=== PATIENT | female | born 1965 | race American Indian/Alaskan Native ===

== ENCOUNTER 2017-04-11 09:27 | Outpatient (CLI) | payer BC ==
--- NOTE | 2017-04-11 10:56 | Magnetic Resonance Report ---
MRI BRAIN WITHOUT CONTRAST: 04/11/17 09:27:00 CLINICAL: Chiari I malformation TECHNIQUE: Axial diffusion, T1, T2, FLAIR, gradient echo T2*, and sagittal T1 sequences on a 1.5 Sara magnet. FINDINGS: Normal ventricles and sulci. The cerebellar tonsils extend inferior to the foramen magnum by approximately 5 mm. The brainstem and spinal cord are normal in size with normal signal. The bony structures including C1 and C2 are normal. No restricted diffusion. A single tiny right parietal white matter focal hyperintensity on FLAIR. No mass or mass effect. No hemorrhage, edema or extra-axial collection. Normal pituitary and optic chiasm. The brainstem and cerebellum are normal. Intact vascular flow voids. Normal sinuses. The orbits, and soft tissues are normal. IMPRESSION: 1. Mild Chiari I malformation. 2. A single tiny right parietal white matter focal hyperintensity on FLAIR. 3. No acute change.
== END 2017-04-11 09:28 | disposition home or self-care (01) ==
LOC: MRI 09:27
PROVIDERS: ATTEND Internal Medicine
DX: G93.5 Compression of brain (principal)
CPT/HCPCS: 70551

== ENCOUNTER 2018-01-23 10:42 | Emergency (ER) | payer BC, OTHER ==
[2018-01-23 11:16] LABS: Basophils # (Auto) 0.1 K/mm3 (0.0-0.1); Basophils % (Auto) 0.8 % (0.0-1.8); Eosinophils # (Auto) 0.1 K/mm3 (0.0-0.4); Eosinophils % (Auto) 0.9 % (0.0-4.3); Hematocrit 38.4 % (30.3-42.9); Hemoglobin 12.6 gm/dl (10.1-14.3); Lymphocytes # (Auto) 1.7 K/mm3 (1.2-5.4); Lymphocytes % (Auto) 24.6 % (13.4-35.0); Mean Corpuscular HGB Conc 33 % (30-34); Mean Corpuscular Hemoglobin 29 pg (28-32); Mean Corpuscular Volume 88 fl (79-97); Monocytes # (Auto) 0.5 K/mm3 (0.0-0.8); Monocytes % (Auto) 6.6 % (0.0-7.3); Platelet Count 322 K/mm3 (140-440); Red Blood Count 4.35 M/mm3 (3.65-5.03); Red Cell Distribution Width 13.8 % (13.2-15.2)
[2018-01-23 11:30] LABS: BUN/Creatinine Ratio 13; Blood Urea Nitrogen 8 mg/dL (7-17); Calcium 8.9 mg/dL (8.4-10.2); Hemolysis Index 3
--- NOTE | 2018-01-23 11:40 | XRay Report ---
ROUTINE CHEST, TWO VIEWS: HISTORY: Shortness of breath. The trachea, heart, mediastinal contour, lung feliz and bony thorax are unremarkable. IMPRESSION: Unremarkable chest x-ray.
--- NOTE | 2018-01-23 12:01 | Emergency Department Report ---
ED Shortness of Breath HPI - General Chief Complaint: Dyspnea/Respdistress Stated Complaint: SOB/HEAD PAIN Time Seen by Provider: 01/23/18 11:50 Source: patient Mode of arrival: Ambulatory Limitations: No Limitations - History of Present Illness Initial Comments: This is a 52-year-old patient here complaining of chronic headaches but today her headache is worse. She is also states that she has swelling to both her legs extremity for a couple days. She states shortness of breath or cough. Denies any history of any heart disease or high blood pressure. She has a history of Chiari malformation and said that is her only medical problem. Denies any chest pain or tightness. Denies any wheezing. Denies any sore throats. She reports the cough is worse at night when she lays down and reports some nasal congestion or runny nose. Patient reports this started about a week ago. She says she has taken [id number] medication but it is not helping. Denies any blurred vision, sensitivity to light, nausea or vomiting or dizziness. Pain is 7-8 out of 10. She denies any pain to her legs to support that they are swollen and she has had this in the past and she says she did not see the doctor she just elevate her legs and they went down. Denies any history of blood clots or clotting disorder. Denies any family history of blood clots. Denies long distance travel or any hormone therapy. MD Complaint: shortness of breath, cough Onset/Timin -: week(s) Radiation: other (nonenone) Severity: severe Pain Scale: 8 Quality: aching Consistency: intermittent Improves With: nothing Worsens With: nothing Known History Of: other (history of swelling to leg and headache) Context: recent URI (current upper respiratory symptoms) Associated Symptoms: cough Treatments Prior to Arrival: none - Related Data Home Oxygen Therapy: No Previous Rx's Medication Instructions Recorded Last Taken Type Amoxicillin/K Clav Tab [Augmentin 1 tab PO Q12HR #20 tab 01/23/18 Unknown Rx 875MG TAB] Cetirizine HCl [ZyrTEC] 10 mg PO QAM 14 Days #14 capsule 01/23/18 Unknown Rx Fluticasone [Flonase] 1 spray NS QDAY 14 Days #1 bottle 01/23/18 Unknown Rx Furosemide [Lasix TAB] 40 mg PO QAM 3 Days #3 tablet 01/23/18 Unknown Rx Ibuprofen [Motrin] 600 mg PO Q8H PRN #12 tablet 01/23/18 Unknown Rx Potassium Chloride [K-Dur] 20 meq PO QDAY 3 Days #3 tab 01/23/18 Unknown Rx Allergies Allergy/AdvReac Type Severity Reaction Status Date / Time IVP DYE Allergy Hives Uncoded 01/23/18 10:47 ED Review of Systems ROS: Stated complaint: SOB/HEAD PAIN Other details as noted in HPI Constitutional: denies: chills, fever Eyes: denies: eye pain, eye discharge, vision change ENT: congestion, other (clogged ear sensation). denies: ear pain, throat pain Respiratory: cough, SOB with exertion. denies: shortness of breath, SOB at rest , stridor, wheezing, other Cardiovascular: edema. denies: chest pain, palpitations, syncope Gastrointestinal: denies: abdominal pain, nausea, vomiting, diarrhea, hematemesis, hematochezia Musculoskeletal: denies: back pain, joint swelling, arthralgia, myalgia Skin: denies: rash, lesions Neurological: headache. denies: weakness, numbness, paresthesias, confusion, abnormal gait, vertigo ED Past Medical Hx - Past Medical History Previous Medical History?: Yes Additional medical history: chiari's malformation - Surgical History Past Surgical History?: Yes Hx Cholecystectomy: Yes Additional Surgical History: wrist, tonsills, vaginal mesh - Family History Family history: hypertension - Social History Smoking Status: Never Smoker Substance Use Type: None - Medications Home Medications: Home Medications Medication Instructions Recorded Confirmed Last Taken Type Amoxicillin/K Clav Tab [Augmentin 1 tab PO Q12HR #20 tab 01/23/18 Unknown Rx 875MG TAB] Cetirizine HCl [ZyrTEC] 10 mg PO QAM 14 Days #14 capsule 01/23/18 Unknown Rx Fluticasone [Flonase] 1 spray NS QDAY 14 Days #1 bottle 01/23/18 Unknown Rx Furosemide [Lasix TAB] 40 mg PO QAM 3 Days #3 tablet 01/23/18 Unknown Rx Ibuprofen [Motrin] 600 mg PO Q8H PRN #12 tablet 01/23/18 Unknown Rx Potassium Chloride [K-Dur] 20 meq PO QDAY 3 Days #3 tab 01/23/18 Unknown Rx ED Physical Exam - General Limitations: No Limitations General appearance: alert, in no apparent distress - Head Head exam: Present: atraumatic, normocephalic, normal inspection - Eye Eye exam: Present: normal appearance, PERRL, EOMI. Absent: nystagmus, periorbital swelling, periorbital tenderness Pupils: Present: normal accommodation - ENT ENT exam: Present: normal orophraynx, mucous membranes moist, normal external ear exam, other (the lateral nasal mucosa congested with erythema and clear drainage. Bilateral maxillary sinuses tender to palpate). Absent: normal exam , TM's normal bilaterally (bilateral TM congested without erythema) - Neck Neck exam: Present: normal inspection, tenderness, full ROM. Absent: meningismus, lymphadenopathy - Respiratory Respiratory exam: Present: normal lung sounds bilaterally, other (dry cough). Absent: respiratory distress, wheezes, rales, rhonchi, stridor, chest wall tenderness, accessory muscle use, decreased breath sounds, prolonged expiratory - Cardiovascular Cardiovascular Exam: Present: regular rate, normal rhythm, normal heart sounds. Absent: systolic murmur, diastolic murmur - GI/Abdominal GI/Abdominal exam: Present: soft, normal bowel sounds. Absent: distended, tenderness, guarding, rebound, rigid, organomegaly, mass - Extremities Exam Extremities exam: Present: normal inspection, full ROM, normal capillary refill , pedal edema (swelling to bilateral legs and feet), other (negative Homans sign. No cc. With edema to both legs and feet at 2+. Nonpitting. + 2 pulses in all extremities, no neurovascular compromise). Absent: tenderness, joint swelling, calf tenderness - Back Exam Back exam: Present: normal inspection, full ROM, other (ambulates without any difficulties). Absent: tenderness, CVA tenderness (R), CVA tenderness (L), muscle spasm, paraspinal tenderness, vertebral tenderness, rash noted - Neurological Exam Neurological exam: Present: alert, oriented X3, normal gait, motor sensory deficit, other (no focal neurological deficit). Absent: reflexes normal - Psychiatric Psychiatric exam: Present: normal affect, normal mood - Skin Skin exam: Present: warm, dry, intact, normal color. Absent: rash ED Course Vital Signs 01/23/18 01/23/18 01/23/18 10:47 12:26 12:27 Temperature 98.6 F Pulse Rate 102 H Respiratory 20 18 18 Rate Blood Pressure 153/83 O2 Sat by Pulse 99 Oximetry 01/23/18 12:54 Temperature Pulse Rate Respiratory 18 Rate Blood Pressure O2 Sat by Pulse Oximetry Vital Signs 01/23/18 01/23/18 01/23/18 10:47 12:26 12:27 Temperature 98.6 F Pulse Rate 102 H Respiratory 20 18 18 Rate Blood Pressure 153/83 O2 Sat by Pulse 99 Oximetry 01/23/18 01/23/18 12:54 14:12 Temperature Pulse Rate 92 H Respiratory 18 Rate Blood Pressure O2 Sat by Pulse Oximetry - Reevaluation(s) Reevaluation #1: 01/23/18 14:13 Patient received tramadol 50 mg by mouth with positive relief of headache. ED Medical Decision Making - Lab Data Result diagrams: 01/23/18 11:01 01/23/18 11:01 Lab Results 01/23/18 01/23/18 01/23/18 Range/Units 11:01 11:01 12:29 WBC 6.9 (4.5-11.0) K/mm3 RBC 4.35 (3.65-5.03) M/mm3 Hgb 12.6 (10.1-14.3) gm/dl Hct 38.4 (30.3-42.9) % MCV 88 (79-97) fl MCH 29 (28-32) pg MCHC 33 (30-34) % RDW 13.8 (13.2-15.2) % Plt Count 322 (140-440) K/mm3 Lymph % (Auto) 24.6 (13.4-35.0) % [place] % (Auto) 6.6 (0.0-7.3) % Eos % (Auto) 0.9 (0.0-4.3) % Baso % (Auto) 0.8 (0.0-1.8) % Lymph # 1.7 (1.2-5.4) K/mm3 [place] # 0.5 (0.0-0.8) K/mm3 Eos # 0.1 (0.0-0.4) K/mm3 Baso # 0.1 (0.0-0.1) K/mm3 Seg Neutrophils % 67.1 (40.0-70.0) % Seg Neutrophils # 4.6 (1.8-7.7) K/mm3 D-Dimer 217.48 (0-234) ng/mlDDU Sodium 139 (137-145) mmol/L Potassium 4.1 (3.6-5.0) mmol/L Chloride 101.2 (98-107) mmol/L Carbon Dioxide 26 (22-30) mmol/L Anion Gap 16 mmol/L BUN 8 (7-17) mg/dL Creatinine 0.6 L (0.7-1.2) mg/dL Estimated GFR > 60 ml/min BUN/Creatinine Ratio 13 % Glucose 137 H (65-100) mg/dL Calcium 8.9 (8.4-10.2) mg/dL NT-Pro-B Natriuret Pep 29.90 (0-900) pg/mL - EKG Data -: EKG Interpreted by Me (attending physician.) EKG shows normal: sinus rhythm Rate: normal (90 bpm) - EKG Data Interpretation: no acute changes, normal EKG - Radiology Data Radiology results: report reviewed Patient had chest x-ray 2 views done and was dictated by radiologist and reviewed by myself. Please see report below. Patient: GARRETT SOTELO MR#: [id number] : 1965 Acct:[id number] Age/Sex: 52 / F ADM Date: 01/23/18 Loc: ED Attending Dr: Ordering Physician: KATHERIEN CALLE MD Date of Service: 01/23/18 Procedure(s): XR chest routine 2V Accession Number(s): [id number] cc: KATHERINE CALLE MD Fluoro Time In Minutes: ROUTINE CHEST, TWO VIEWS: HISTORY: Shortness of breath. The trachea, heart, mediastinal contour, lung feliz and bony thorax are unremarkable. IMPRESSION: Unremarkable chest x-ray. Transcribed By: TTR Dictated By: BRYSON VAZQUEZ JR, MD Electronically Authenticated By: BRYSON VAZQUEZ JR, MD Signed Date/Time: 01/23/181138 DD/ 38 TD/TT: 01/23/181138 - Medical Decision Making This 52-year-old female here complaining of headache that she is not able to get rid of and she has had headaches in the past. She is complaining nasal congestion, dry cough and runny nose. She is also complaining of swelling to her lower extremity which she has had before but she said it was not that bad and it went away with elevation. Patient denies any history of any heart disease hypertension diabetes. She does have a primary care doctor. Diagnostics: X-ray 2 views dictated by radiologist and reported provided by myself and chest x-ray normal without any cardiopulmonary distribution center assistant. Please see radiology section for details Labs: CBC, d-dimer, chemistry within normal limits except for minor abnormality in chemistry. The lab section for details Assessment/plan 1: Sinusitis-she will be discharged home on Augmentin, Zyrtec and Flonase 2: Dependent edema bilateral lower extremities-will be placed on Lasix 3 days and to follow up with her primary care physician. I will also add potassium supplements Headache-spectrum sinus infection and better with Ultram 50 mg by mouth in emergency room and will discharge home on Motrin. This is a 52-year-old female who is a [facility] patient and she is diagnosed with sinusitis and dependent edema with headache suspect from sinus problems. I discussed her x-ray and laboratory results with her and she voiced understanding. I also discussed diagnosis and treatment plan and I told her that she will need to follow-up with [facility] primary care for sinusitis and bilateral lower extremity edema and she also voiced understanding. She needs to follow-up within 2 days. I discussed medication with her and she voiced understanding. Patient discharged home in stable condition, vital signs stable , headache is resolved and discharged home a prescription for Motrin, Augmentin , Lasix, potassium Zyrtec and Flonase. She says she will follow-up at [facility] and she will call to schedule an appointment. - Differential Diagnosis PNA,CHF, CARDIOMEGALT,DVT,PE,EDEMA, SINUSITIS,ViralSy Critical care attestation.: If time is entered above; I have spent that time in minutes in the direct care of this critically ill patient, excluding procedure time. ED Disposition Clinical Impression: Lower extremity edema Sinusitis Qualifiers: Sinusitis location: unspecified location Chronicity: acute Recurrence: not specified as recurrent Qualified Code(s): J01.90 - Acute sinusitis, unspecified Headache Qualifiers: Headache type: unspecified Headache chronicity pattern: episodic headache Intractability: not intractable Qualified Code(s): R51 - Headache Disposition: - TO HOME OR SELFCARE Is pt being admited?: No Does the pt Need Aspirin: No Condition: Stable Instructions: Sinusitis (ED), Acute Headache (ED), Leg Edema (ED), Low Sodium Diet (ED) Additional Instructions: Please take antibiotic as prescribed Follow-up with primary care physician in 2 days If your condition worsens to include difficulty breathing, swallowing, chest pain, nausea and vomiting and fever, please return to the emergency room [facility]. Take Zyrtec and Flonase to relieve congestion Take Lasix and potassium and this will help with swelling to legs and elevate the left is much as he can on pillows to reduce swelling. You could also wear compression hose to help with reduction of swelling. Use nasal saline wash to flush and nostrils. Prescriptions: Amoxicillin/K Clav Tab [Augmentin 875MG TAB] 1 tab PO Q12HR #20 tab Cetirizine HCl [ZyrTEC] 10 mg PO QAM 14 Days #14 capsule Fluticasone [Flonase] 1 spray NS QDAY 14 Days #1 bottle Furosemide [Lasix TAB] 40 mg PO QAM 3 Days #3 tablet Ibuprofen [Motrin] 600 mg PO Q8H PRN #12 tablet PRN Reason: Pain Potassium Chloride [K-Dur] 20 meq PO QDAY 3 Days #3 tab Referrals: [facility] [Provider Group] - 01/25/18 Forms: Work/School Release Form(ED), Accompanied Note
[2018-01-23] MEDS ORDERED: ULTRAM PO ONE (12:03)
[2018-01-23 15:07] VITALS: BP 143/80
== END 2018-01-23 15:12 | disposition home or self-care (01) ==
LOC: ED 10:42
DX: J01.90 Acute sinusitis, unspecified (principal); R60.9 Edema, unspecified; Z90.49 Acquired absence of other specified parts of digestive tract; Z91.041 Radiographic dye allergy status
CPT/HCPCS: 36415; 71046; 80048; 83880; 85025; 85379; 93005; 93010; 99283

== ENCOUNTER 2018-07-29 16:45 | Emergency (ER) | payer OTHER ==
--- NOTE | 2018-07-29 17:27 | Emergency Department Report ---
Blank Doc - Documentation Documentation: This is a 53-year-old female that presents with right flank pain with right si ded pelvic pain. Denies any n/v. HX of kidney stones. This initial assessment/diagnostic orders/clinical plan/treatment(s) is/are subject to change based on patient's health status, clinical progression and re- assessment by fellow clinical providers in the ED. Further treatment and workup at subsequent clinical providers discretion. Patient/guardians urged not to elope from the ED as their condition may be serious if not clinically assessed and managed. Initial orders include: 1- Patient sent to [facility] for further evaluation and treatment 2- labs 3- UA
[2018-07-29 17:28] VITALS: BP 126/80
[2018-07-29 17:48] LABS: Basophils # (Auto) 0.1 K/mm3 (0.0-0.1); Basophils % (Auto) 1.3 % (0.0-1.8); Eosinophils % (Auto) 0.6 % (0.0-4.3); Hematocrit 42.1 % (30.3-42.9); Lymphocytes # (Auto) 2.8 K/mm3 (1.2-5.4); Lymphocytes % (Auto) 38.4 % (13.4-35.0); Mean Corpuscular HGB Conc 33 % (30-34); Mean Corpuscular Volume 88 fl (79-97); Monocytes # (Auto) 0.4 K/mm3 (0.0-0.8); Monocytes % (Auto) 5.5 % (0.0-7.3); Platelet Count 391 K/mm3 (140-440); Red Blood Count 4.78 M/mm3 (3.65-5.03); Red Cell Distribution Width 14.5 % (13.2-15.2)
[2018-07-29 18:01] LABS: Alanine Aminotransferase 11 units/L (7-56); Albumin 4.1 g/dL (3.9-5); BUN/Creatinine Ratio 11; Blood Urea Nitrogen 8 mg/dL (7-17); Calcium 9.2 mg/dL (8.4-10.2); Hemolysis Index 3
[2018-07-29 18:18] LABS: Bacteria,Urine 1+ /HPF (Negative); Bilirubin,Urine NEG (Negative); Blood,Urine NEG (Negative); Color,Urine Yellow (Yellow); Mucus,Urine FEW /HPF; Protein,Urine <15 mg/dL mg/dL (Negative); Urobilinogen,Urine < 2.0 mg/dL (<2.0)
--- NOTE | 2018-07-30 00:07 | Emergency Department Report ---
ED Abdominal Pain HPI - General Chief Complaint: Back Pain/Injury Stated Complaint: BACK PAIN ON (R) SIDE Time Seen by Provider: 07/29/18 17:25 Source: patient Mode of arrival: Ambulatory Limitations: No Limitations - History of Present Illness Initial Comments: This is a 53-year-old female that presents with right flank pain with right sided pelvic pain. Denies any n/v. HX of kidney stones., states this feels like a stone, there is no n/v no fever or chills , there is dyruia and frequency no hematuria MD Complaint: abdominal pain, flank pain (right flank pain 4) -: days(s) Location: R flank Radiation: suprapubic, R flank Migration to: suprapubic Severity: moderate Severity scale (0 -10): 5 Quality: aching, sharp Consistency: constant Improves With: nothing Worsens With: nothing Associated Symptoms: denies: nausea, vomiting, fever, chills - Related Data LMP Date: 07/12/18 Previous Rx's Medication Instructions Recorded Last Taken Type Amoxicillin/K Clav Tab [Augmentin 1 tab PO Q12HR #20 tab 01/23/18 Unknown Rx 875MG TAB] Cetirizine HCl [ZyrTEC] 10 mg PO QAM 14 Days #14 capsule 01/23/18 Unknown Rx Fluticasone [Flonase] 1 spray NS QDAY 14 Days #1 bottle 01/23/18 Unknown Rx Furosemide [Lasix TAB] 40 mg PO QAM 3 Days #3 tablet 01/23/18 Unknown Rx Ibuprofen [Motrin] 600 mg PO Q8H PRN #12 tablet 01/23/18 Unknown Rx Potassium Chloride [K-Dur] 20 meq PO QDAY 3 Days #3 tab 01/23/18 Unknown Rx Allergies Allergy/AdvReac Type Severity Reaction Status Date / Time IVP DYE Allergy Hives Uncoded 01/23/18 10:47 ED Review of Systems ROS: Stated complaint: BACK PAIN ON (R) SIDE Other details as noted in HPI Constitutional: denies: chills, fever Eyes: denies: eye pain, eye discharge, vision change ENT: denies: ear pain, throat pain Respiratory: denies: cough, shortness of breath, wheezing Cardiovascular: denies: chest pain, palpitations Endocrine: no symptoms reported Gastrointestinal: abdominal pain. denies: nausea, vomiting, diarrhea Genitourinary: urgency, dysuria, frequency. denies: hematuria, discharge, abnormal menses, dyspareunia Musculoskeletal: back pain Skin: denies: rash, lesions Neurological: denies: headache, weakness, paresthesias Psychiatric: denies: anxiety, depression Hematological/Lymphatic: denies: easy bleeding, easy bruising ED Past Medical Hx - Past Medical History Previous Medical History?: Yes Hx Kidney Stones: Yes Additional medical history: chiari's malformation - Surgical History Past Surgical History?: Yes Hx Cholecystectomy: Yes Additional Surgical History: wrist, tonsills, vaginal mesh - Social History Smoking Status: Current Some Day Smoker Substance Use Type: Alcohol - Medications Home Medications: Home Medications Medication Instructions Recorded Confirmed Last Taken Type Amoxicillin/K Clav Tab [Augmentin 1 tab PO Q12HR #20 tab 01/23/18 Unknown Rx 875MG TAB] Cetirizine HCl [ZyrTEC] 10 mg PO QAM 14 Days #14 capsule 01/23/18 Unknown Rx Fluticasone [Flonase] 1 spray NS QDAY 14 Days #1 bottle 01/23/18 Unknown Rx Furosemide [Lasix TAB] 40 mg PO QAM 3 Days #3 tablet 01/23/18 Unknown Rx Ibuprofen [Motrin] 600 mg PO Q8H PRN #12 tablet 01/23/18 Unknown Rx Potassium Chloride [K-Dur] 20 meq PO QDAY 3 Days #3 tab 01/23/18 Unknown Rx ED Physical Exam - General Limitations: No Limitations General appearance: alert, in no apparent distress - Head Head exam: Present: atraumatic, normocephalic - Eye Eye exam: Present: normal appearance, PERRL, EOMI Pupils: Present: normal accommodation - ENT ENT exam: Present: mucous membranes moist - Neck Neck exam: Present: normal inspection, full ROM - Respiratory Respiratory exam: Present: normal lung sounds bilaterally. Absent: respiratory distress - Cardiovascular Cardiovascular Exam: Present: regular rate, normal rhythm. Absent: systolic murmur, diastolic murmur, rubs, gallop - GI/Abdominal GI/Abdominal exam: Present: soft, tenderness (right flank tenderness to palpation), normal bowel sounds, pulsatile mass. Absent: distended, guarding, rebound, rigid, mass, bruit, hernia - Rectal Rectal exam: Present: deferred - Extremities Exam Extremities exam: Present: normal inspection, full ROM, normal capillary refill - Back Exam Back exam: Present: normal inspection, full ROM, tenderness, CVA tenderness (R). Absent: CVA tenderness (L), muscle spasm, paraspinal tenderness, rash noted - Neurological Exam Neurological exam: Present: alert, oriented X3, CN II-XII intact, normal gait - Psychiatric Psychiatric exam: Present: normal affect, normal mood - Skin Skin exam: Present: warm, dry, intact, normal color. Absent: rash ED Course Vital Signs 07/29/18 17:26 Temperature 98.7 F Pulse Rate 83 Respiratory 16 Rate Blood Pressure 126/80 O2 Sat by Pulse 98 Oximetry ED Medical Decision Making - Lab Data Result diagrams: 07/29/18 17:36 07/29/18 17:36 Labs 07/29/18 07/29/18 07/29/18 17:36 17:36 17:40 WBC 7.4 RBC 4.78 Hgb 14.0 Hct 42.1 MCV 88 MCH 29 MCHC 33 RDW 14.5 Plt Count 391 Lymph % (Auto) 38.4 H [place] % (Auto) 5.5 Eos % (Auto) 0.6 Baso % (Auto) 1.3 Lymph # 2.8 [place] # 0.4 Eos # 0.0 Baso # 0.1 Seg Neutrophils % 54.2 Seg Neutrophils # 4.0 Sodium 140 Potassium 3.9 Chloride 99.6 Carbon Dioxide 28 Anion Gap 16 BUN 8 Creatinine 0.7 Estimated GFR > 60 BUN/Creatinine Ratio 11 Glucose 99 Calcium 9.2 Total Bilirubin 0.40 AST 17 ALT 11 Alkaline Phosphatase 86 Total Protein 7.6 Albumin 4.1 Albumin/Globulin Ratio 1.2 Lipase 20 Urine Color Yellow Urine Turbidity Clear Urine pH 5.0 Ur Specific [place] 1.026 Urine Protein <15 mg/dl Urine Glucose (UA) Neg Urine Ketones Neg Urine Blood Neg Urine Nitrite Neg Urine Bilirubin Neg Urine Urobilinogen < 2.0 Ur Leukocyte Esterase Neg Urine WBC (Auto) 3.0 Urine RBC (Auto) 5.0 U Epithel Cells (Auto) 2.0 Urine Bacteria (Auto) 1+ Urine Mucus Few - EKG Data When compared to previous EKG there are: changes noted - Radiology Data Radiology results: report reviewed, image reviewed c: ARMIN TRONCOSO NP PROCEDURE: CT ABDOMEN PELVIS WO CON TECHNIQUE: Routine axial imaging was obtained of the abdomen and pelvis without oral or IV contrast. Sagittal and coronal reconstructions reviewed. HISTORY: flank abd pain COMPARISONS: None FINDINGS: The lung bases are negative for infiltrates or effusions. The gallbladder has been removed. The liver and biliary tree appear normal. The pancreas, spleen, and adrenal glands appear normal. The kidneys reveal a 6 mm nonobstructing stone centrally in the left kidney. There is no evidence of hydronephrosis bilaterally. The bowel loops are normal in caliber and course. The appendix is not enlarged. There is no evidence of free fluid or adenopathy. In the pelvis the uterus has a lobulated contour compatible with multiple fibroids. The bladder appears normal. The skeletal structures reveal disc degeneration or lumbar spine. IMPRESSION: 6 mm nonobstructing stone centrally in the left kidney. No evidence of hydronephrosis. Cholecystectomy. No acute process in the abdomen and pelvis. Fibroid uterus.. This document is electronically signed by Gregor Pisano MD., July 30 2018 01:59:18 AM ET Transcribed By: RB Dictated By: GREGOR PISANO MD Electronically Authenticated By: GREGOR PISANO MD Signed Date/Time: 07/30/18 0201 DD/ 6 TD/TT: 07/30/188 - Medical Decision Making ct abd pelv right renal stone 6 mm no obstructing no hydro Critical care attestation.: If time is entered above; I have spent that time in minutes in the direct care of this critically ill patient, excluding procedure time. ED Disposition Clinical Impression: Flank pain, Kidney stone Disposition: DC-01 TO HOME OR SELFCARE Is pt being admited?: No Does the pt Need Aspirin: No Condition: Stable Additional Instructions: kidney stone Referrals: [facility] [Other] - 3-5 Days Forms: Work/School Release Form(ED)
[2018-07-30] MEDS ORDERED: TORADOL IV ONE (00:49)
[2018-07-30] MEDS ORDERED: TORADOL ONE (00:51)
--- NOTE | 2018-07-30 02:01 | Cat Scan Report ---
PROCEDURE: CT ABDOMEN PELVIS WO CON TECHNIQUE: Routine axial imaging was obtained of the abdomen and pelvis without oral or IV contrast. Sagittal and coronal reconstructions reviewed. HISTORY: flank abd pain COMPARISONS: None FINDINGS: The lung bases are negative for infiltrates or effusions. The gallbladder has been removed. The liver and biliary tree appear normal. The pancreas, spleen, and adrenal glands appear normal. The kidneys reveal a 6 mm nonobstructing stone centrally in the left k idney. There is no evidence of hydronephrosis bilaterally. The bowel loops are normal in caliber and course. The appendix is not enlarged. There is no evidence of free fluid or adenopathy. In the pelvis the uterus has a lobulated contour compatible with multiple fibroids. The bladder appears normal. Th e skeletal structures reveal disc degeneration or lumbar spine. IMPRESSION: 6 mm nonobstructing stone centrally in the left kidney. No evidence of hydronephrosis. Cholecystectomy. No acute process in the abdomen and pelvis. Fibroid uterus.. This document is electronically signed by Gregor Pisano MD., July 30 2018 01:59:18 AM ET
== END 2018-07-30 02:55 | disposition home or self-care (01) ==
LOC: ED 16:45
DX: N20.0 Calculus of kidney (principal); F17.200 Nicotine dependence, unspecified, uncomplicated; Z91.041 Radiographic dye allergy status; Z90.49 Acquired absence of other specified parts of digestive tract
CPT/HCPCS: 36415; 74176; 80053; 81001; 83690; 85025; 96374; 99284; J1885

== ENCOUNTER 2019-02-23 10:43 | Emergency (ER) | payer OTHER ==
[2019-02-23] MEDS ORDERED: ASPIRIN PO ONE (10:49)
--- NOTE | 2019-02-23 11:38 | XRay Report ---
CHEST 1 VIEW INDICATION / CLINICAL INFORMATION: MAIN: Chest Pain FOR 3 DAYS. COMPARISON: 01/23/18 FINDINGS: SUPPORT DEVICES: None. HEART / MEDIASTINUM: No significant abnormality. LUNGS / PLEURA: No significant pulmonary or pleural abnormality. No pneumothorax. ADDITIONAL FINDINGS: No significant additional findings. IMPRESSION: 1. No acute findings. No change. Signer Name: Prince De Souza MD Signed: 02/23/2019 11:33 AM Workstation Name: [id number]
[2019-02-23 12:11] LABS: Basophils % (Auto) 0.3 % (0.0-1.8); Eosinophils # (Auto) 0.1 K/mm3 (0.0-0.4); Eosinophils % (Auto) 1.1 % (0.0-4.3); Hematocrit 39.7 % (30.3-42.9); Hemoglobin 13.2 gm/dl (10.1-14.3); Lymphocytes # (Auto) 1.3 K/mm3 (1.2-5.4); Lymphocytes % (Auto) 25.6 % (13.4-35.0); Mean Corpuscular HGB Conc 33 % (30-34); Mean Corpuscular Volume 87 fl (79-97); Monocytes # (Auto) 0.6 K/mm3 (0.0-0.8); Monocytes % (Auto) 11.1 % (0.0-7.3); Platelet Count 261 K/mm3 (140-440); Red Cell Distribution Width 14.9 % (13.2-15.2)
[2019-02-23 12:24] LABS: INR 1.11 (0.87-1.13); Partial Thromboplastin Time 26.6 Sec. (24.2-36.6)
[2019-02-23 12:38] LABS: BUN/Creatinine Ratio 15; Blood Urea Nitrogen 9 mg/dL (7-17); Calcium 8.9 mg/dL (8.4-10.2); Hemolysis Index 7
[2019-02-23 12:48] LABS: Alanine Aminotransferase 17 units/L (7-56); Albumin 4.2 g/dL (3.9-5)
[2019-02-23 12:49] LABS: Bilirubin,Direct < 0.2 mg/dL (0-0.2)
--- NOTE | 2019-02-23 15:08 | Emergency Department Report ---
ED General Adult HPI - General Chief complaint: Chest Pain Stated complaint: CHEST PAIN/SOB Time Seen by Provider: 02/23/19 11:26 Source: patient Mode of arrival: Ambulatory Limitations: No Limitations - History of Present Illness Initial comments: 53-year-old female with a chest discomfort which occurs only on cough. Patient states that she has been wheezing and has run out of her inhaler recently. She states that her sputum when she coughs it up occasionally is clear. She does not have pleuritic pain. She does not have dyspnea at rest. She has no complaint of leg pain or acute swelling. She's had no recent travel. -: Gradual, days(s) Location: chest (diffuse soreness only on cough) Radiation: non-radiation Quality: aching Consistency: intermittent Improves with: none Worsens with: none Associated Symptoms: denies other symptoms Treatments Prior to Arrival: none - Related Data Previous Rx's Medication Instructions Recorded Last Taken Type Amoxicillin/K Clav Tab [Augmentin 1 tab PO Q12HR #20 tab 01/23/18 Unknown Rx 875MG TAB] Cetirizine HCl [ZyrTEC] 10 mg PO QAM 14 Days #14 capsule 01/23/18 Unknown Rx Fluticasone [Flonase] 1 spray NS QDAY 14 Days #1 bottle 01/23/18 Unknown Rx Furosemide [Lasix TAB] 40 mg PO QAM 3 Days #3 tablet 01/23/18 Unknown Rx Ibuprofen [Motrin] 600 mg PO Q8H PRN #12 tablet 01/23/18 Unknown Rx Potassium Chloride [K-Dur] 20 meq PO QDAY 3 Days #3 tab 01/23/18 Unknown Rx Ciprofloxacin HCl [Cipro] 500 mg PO BID #20 tablet 07/30/18 Unknown Rx Tamsulosin [Flomax] 0.4 mg PO QDAY #30 cap NS 07/30/18 Unknown Rx traMADol [Ultram] 50 mg PO Q6HR PRN #50 tablet 07/30/18 Unknown Rx Albuterol Sulfate [Proair 90 mcg IH Q4H PRN #1 aer.pow.ba 02/23/19 Unknown Rx Respiclick] Azithromycin [Zithromax Z-RAYMON] 250 mg PO DAILY #6 tab 02/23/19 Unknown Rx Allergies Allergy/AdvReac Type Severity Reaction Status Date / Time IVP DYE Allergy Hives Uncoded 01/23/18 10:47 ED Review of Systems ROS: Stated complaint: CHEST PAIN/SOB Other details as noted in HPI Constitutional: denies: chills, fever Eyes: denies: eye pain, eye discharge, vision change ENT: denies: ear pain, throat pain Respiratory: cough. denies: shortness of breath, wheezing Cardiovascular: chest pain. denies: palpitations Endocrine: no symptoms reported Gastrointestinal: denies: abdominal pain, nausea, diarrhea Genitourinary: denies: urgency, dysuria, discharge Musculoskeletal: denies: back pain, joint swelling, arthralgia Skin: denies: rash, lesions Neurological: denies: headache, weakness, paresthesias Psychiatric: denies: anxiety, depression Hematological/Lymphatic: denies: easy bleeding, easy bruising ED Past Medical Hx - Past Medical History Previous Medical History?: Yes Hx Kidney Stones: Yes Additional medical history: chiari's malformation, Bronchitis - Surgical History Past Surgical History?: Yes Hx Cholecystectomy: Yes Additional Surgical History: wrist, tonsills, vaginal mesh, Carpel tunnel - Social History Smoking Status: Former Smoker Substance Use Type: Alcohol, Prescribed - Medications Home Medications: Home Medications Medication Instructions Recorded Confirmed Last Taken Type Amoxicillin/K Clav Tab [Augmentin 1 tab PO Q12HR #20 tab 01/23/18 Unknown Rx 875MG TAB] Cetirizine HCl [ZyrTEC] 10 mg PO QAM 14 Days #14 capsule 01/23/18 Unknown Rx Fluticasone [Flonase] 1 spray NS QDAY 14 Days #1 bottle 01/23/18 Unknown Rx Furosemide [Lasix TAB] 40 mg PO QAM 3 Days #3 tablet 01/23/18 Unknown Rx Ibuprofen [Motrin] 600 mg PO Q8H PRN #12 tablet 01/23/18 Unknown Rx Potassium Chloride [K-Dur] 20 meq PO QDAY 3 Days #3 tab 01/23/18 Unknown Rx Ciprofloxacin HCl [Cipro] 500 mg PO BID #20 tablet 07/30/18 Unknown Rx Tamsulosin [Flomax] 0.4 mg PO QDAY #30 cap NS 07/30/18 Unknown Rx traMADol [Ultram] 50 mg PO Q6HR PRN #50 tablet 07/30/18 Unknown Rx Albuterol Sulfate [Proair 90 mcg IH Q4H PRN #1 aer.pow.ba 02/23/19 Unknown Rx Respiclick] Azithromycin [Zithromax Z-RAYMON] 250 mg PO DAILY #6 tab 02/23/19 Unknown Rx ED Physical Exam - General Limitations: No Limitations ED Course Vital Signs 02/23/19 02/23/19 02/23/19 10:45 11:10 12:42 Temperature 98.9 F Pulse Rate 91 H 87 80 Respiratory 18 20 20 Rate Blood Pressure 147/71 Blood Pressure 130/79 141/79 [Right] O2 Sat by Pulse 100 94 100 Oximetry 02/23/19 15:10 Temperature 99.3 F Pulse Rate 82 Respiratory 20 Rate Blood Pressure Blood Pressure 126/66 [Right] O2 Sat by Pulse 95 Oximetry - Reevaluation(s) Reevaluation #1: Scan result is still pending. Patient is very low pretest probability with a slightly elevated d-dimer. Outpatient treatment is anticipated. 02/23/19 15:17 ED Medical Decision Making - Lab Data Result diagrams: 02/23/19 11:12 02/23/19 11:12 Laboratory Results - last 24 hr 02/23/19 02/23/19 02/23/19 11:12 11:12 11:12 WBC 5.1 RBC 4.60 Hgb 13.2 Hct 39.7 MCV 87 MCH 29 MCHC 33 RDW 14.9 Plt Count 261 Lymph % (Auto) 25.6 [place] % (Auto) 11.1 H Eos % (Auto) 1.1 Baso % (Auto) 0.3 Lymph # 1.3 [place] # 0.6 Eos # 0.1 Baso # 0.0 Seg Neutrophils % 61.9 Seg Neutrophils # 3.1 PT INR APTT D-Dimer Sodium 139 Potassium 4.0 Chloride 99.3 Carbon Dioxide 23 Anion Gap 21 BUN 9 Creatinine 0.6 L Estimated GFR > 60 BUN/Creatinine Ratio 15 Glucose 93 Calcium 8.9 Total Bilirubin Direct Bilirubin Indirect Bilirubin AST ALT Alkaline Phosphatase Troponin T < 0.010 < 0.010 NT-Pro-B Natriuret Pep Total Protein Albumin Albumin/Globulin Ratio 02/23/19 02/23/19 11:12 11:12 WBC RBC Hgb Hct MCV MCH MCHC RDW Plt Count Lymph % (Auto) [place] % (Auto) Eos % (Auto) Baso % (Auto) Lymph # [place] # Eos # Baso # Seg Neutrophils % Seg Neutrophils # PT 14.0 INR 1.11 APTT 26.6 D-Dimer 279.65 H Sodium Potassium Chloride Carbon Dioxide Anion Gap BUN Creatinine Estimated GFR BUN/Creatinine Ratio Glucose Calcium Total Bilirubin 0.30 Direct Bilirubin < 0.2 Indirect Bilirubin 0.1 AST 21 ALT 17 Alkaline Phosphatase 92 Troponin T NT-Pro-B Natriuret Pep 10.65 Total Protein 7.2 Albumin 4.2 Albumin/Globulin Ratio 1.4 - EKG Data -: EKG Interpreted by Tn EKG shows normal: sinus rhythm, axis, intervals, QRS complexes, ST-T waves Rate: normal - EKG Data Interpretation: normal EKG - Radiology Data Radiology results: report reviewed (NAF), image reviewed Critical care attestation.: If time is entered above; I have spent that time in minutes in the direct care of this critically ill patient, excluding procedure time. ED Disposition Clinical Impression: Reactive airways dysfunction syndrome Acute bronchitis Qualifiers: Bronchitis organism: unspecified organism Qualified Code(s): J20.9 - Acute bronchitis, unspecified Disposition: DC- TO HOME OR SELFCARE Is pt being admited?: No Does the pt Need Aspirin: No Condition: Stable Instructions: Acute Bronchitis (ED) Additional Instructions: [facility] any acute change or worsening symptoms. Follow up with her primary care provider. Rx as directed. Prescriptions: Albuterol Sulfate [Proair Respiclick] 90 mcg IH Q4H PRN #1 aer.pow.ba PRN Reason: Wheezing Azithromycin [Zithromax Z-RAYMON] 250 mg PO DAILY #6 tab Referrals: PRIMARY CARE, [Primary Care Provider] - 3-5 Days [facility] [Provider Group] - 3-5 Days
--- NOTE | 2019-02-23 15:10 | Nuclear Medicine Report ---
Nuclear medicine ventilation/perfusion lung scan Indication: Shortness of breath Technique: 18.9 mCi of Xenon-133 were given by inhalation. 5.0 mCi of Tc 99m MAA were given by IV. Findings: Comparison with chest radiograph from earlier the same day. Wash-in, equilibrium, and wash-out phases of ventilation are normal. No air-trapping is seen. On the perfusion images, no wedge-shaped pleural-based defects are seen. Impression: Low probability for acute PTE. Signer Name: Marco Antonio Ayoub MD Signed: 02/23/2019 3:05 PM Workstation Name: [id number]
[2019-02-23 15:11] VITALS: BP 126/66
[2019-02-23] MEDS ORDERED: DUONEB *Not for PRN Use IH ONE (15:13)
[2019-02-23] MEDS ORDERED: DECADRON IV ONE (15:15)
[2019-02-23] MEDS ORDERED: NORCO 5/325 PO ONE (15:21)
== END 2019-02-23 16:23 | disposition home or self-care (01) ==
LOC: ED 10:43
DX: J20.9 Acute bronchitis, unspecified (principal); J68.3 Other acute and subacute respiratory conditions due to chemicals, gases, fumes and vapors; Z87.442 Personal history of urinary calculi; Z90.49 Acquired absence of other specified parts of digestive tract; Z87.891 Personal history of nicotine dependence; Z98.890 Other specified postprocedural states; Z79.899 Other long term (current) drug therapy; Z91.041 Radiographic dye allergy status
CPT/HCPCS: 36415; 71045; 78582; 80048; 80076; 83880; 84484; 85025; 85379; 85610; 85730; 93005; 93010; 94640; 96374; 99285; A9540; A9558; J1100; 94644

== ENCOUNTER 2019-12-25 08:52 | Emergency (ER) | payer OTHER ==
[2019-12-25 09:02] VITALS: BP 107/59
[2019-12-25] MEDS ORDERED: ASPIRIN 325 MG TAB PO ONE (09:02)
[2019-12-25 10:12] LABS: Basophils % (Auto) 0.6 % (0.0-1.8); Eosinophils % (Auto) 0.7 % (0.0-4.3); Hematocrit 39.5 % (30.3-42.9); Hemoglobin 12.9 gm/dl (10.1-14.3); Lymphocytes # (Auto) 1.7 K/mm3 (1.2-5.4); Lymphocytes % (Auto) 25.8 % (13.4-35.0); Mean Corpuscular HGB Conc 33 % (30-34); Mean Corpuscular Volume 88 fl (79-97); Monocytes # (Auto) 0.4 K/mm3 (0.0-0.8); Monocytes % (Auto) 6.5 % (0.0-7.3); Platelet Count 318 K/mm3 (140-440); Red Blood Count 4.47 M/mm3 (3.65-5.03); Red Cell Distribution Width 15.4 % (13.2-15.2)
--- NOTE | 2019-12-25 10:25 | XRay Report ---
CHEST 2 VIEWS INDICATION / CLINICAL INFORMATION: Chest Pain. COMPARISON: 02/23/2019 FINDINGS: SUPPORT DEVICES: None. HEART / MEDIASTINUM: No significant abnormality. LUNGS / PLEURA: No significant pulmonary or pleural abnormality. No pneumothorax. ADDITIONAL FINDINGS: No significant additional findings. IMPRESSION: 1. No acute findings. Signer Name: Cj Nelson MD Signed: 12/25/2019 10:21 AM Workstation Name: [id number]
[2019-12-25 10:38] LABS: Blood Urea Nitrogen 10 mg/dL (7-17); Hemolysis Index 8
[2019-12-25 10:39] LABS: BUN/Creatinine Ratio 17
== END 2019-12-25 12:00 | disposition left against medical advice (07) ==
LOC: ED 08:52
DX: R07.9 Chest pain, unspecified (principal); Z53.21 Procedure and treatment not carried out due to patient leaving prior to being seen by health care provider
CPT/HCPCS: 36415; 71046; 80048; 84484; 85025; 93005